=== PATIENT | male | born 1980 | race African-American/Black ===

== ENCOUNTER 2018-02-09 20:09 | Emergency (ER) | payer SELFPAY ==
[~2018-02-09] VITALS: Ht 180.3 cm; Wt 86.2 kg
[2018-02-09 20:45] VITALS: BP 164/111
[2018-02-09 21:18] LABS: APPEARANCE,URINE Cloudy (CLEAR); BILIRUBIN,URINE Negative (NEGATIVE); BLOOD, URINE Trace-intact Ery/uL (NEGATIVE); COLOR,URINE Yellow (YELLOW); KETONES,URINE Negative (NEGATIVE); LEUKOCYTE ESTERASE ,URINE Small (NEGATIVE); NITRITE, URINE Negative (NEGATIVE); PH,URINE 8.5 (5.0-8.0); PROTEIN,URINE 30 mg/dl (NEGATIVE); UGLUCOSE Negative (NEGATIVE); UROBILINOGEN,URINE 0.2 EU/dL (0.2)
[2018-02-09] MEDS ORDERED: CEFTRIAXONE 500 MG VIAL ONE (21:28)
[2018-02-09] MEDS ORDERED: AZITHROMYCIN 250 MG TABLET ONE (21:29)
[2018-02-09] MEDS ORDERED: LIDOCAINE /MPF 1% VIAL 5 ML VIAL ONE (21:29)
[2018-02-09] MEDS ORDERED: CEFTRIAXONE 500 MG VIAL IM ONE (21:30)
[2018-02-09] MEDS ORDERED: AZITHROMYCIN 250 MG TABLET PO ONE (21:30)
[2018-02-09 21:40] LABS: URINE AMORPHOUS URATE Few /HPF (None Seen)
[2018-02-09 21:41] LABS: BACTERIA,URINE Few /HPF (None Seen); SQUAMOUS EPITHELIAL CELL,UR Few /HPF (None Seen)
== END 2018-02-09 23:06 | disposition home or self-care (01) ==
LOC: ER 20:09
DX: Z20.2 Contact with and (suspected) exposure to infections with a predominantly sexual mode of transmission (principal); I10 Essential (primary) hypertension
CPT/HCPCS: 81000-TC; 87086-TC; 87491; 87591; A4606; J0696; J3490; Z7610

== ENCOUNTER 2025-06-02 23:25 | Emergency (ER) | payer BC ==
[~2025-06-02] VITALS: Ht 180.3 cm; Wt 88.5 kg
[2025-06-03 00:56] VITALS: TEMP 98.4
[2025-06-03 01:25] LABS: PLATELET COUNT (AUTO) 242 K/uL (150-450); RED BLOOD CELL COUNT(AUTO) 4.77 MIL/uL (4.5-6.0); RED CELL DISTRIBUTION WIDTH 15.2 % (11.5-15.0); WHITE BLOOD COUNT (AUTO) 5.3 K/uL (4.3-11.0)
[2025-06-03 01:31] LABS: CALCIUM, SERUM 9.4 mg/dL (8.5-10.1); CREATININE 1.0 mg/dL (0.6-1.3); SODIUM SERUM 140 mmol/L (136-145); UREA NITROGEN, BLOOD 12 mg/dL (7-18)
[2025-06-03 01:36] VITALS: BP 134/78; O2SAT 97
[2025-06-03 01:45] LABS: ASPARTATE AMINOTRANSFERASE 15 U/L (15-37); TOTAL PROTEIN, SERUM 8.1 g/dL (6.4-8.2)
[2025-06-03 01:54] LABS: INR 0.98 (0.91-1.10)
[2025-06-03 01:56] LABS: NT-PRO BNP 5 pg/mL (0-125)
== END 2025-06-03 03:21 | disposition home or self-care (01) ==
LOC: ER 23:27
DX: R06.09 Other forms of dyspnea (principal); M79.10 Myalgia, unspecified site; Z60.2 Problems related to living alone
CPT/HCPCS: 36415; 71045-TC; 80048-TC; 80076-TC; 83880; 84484-TC; 85025-TC; 85378-TC; 85730-TC; 93970-TC